=== PATIENT | female | born 1950 | race Caucasian/White ===

== ENCOUNTER 2019-07-12 10:21 | Emergency (ER) | payer OTHER ==
[2019-07-12] MEDS ORDERED: FENTANYL CITR 100 MCG/2 ML ONE (11:35)
[2019-07-12] MEDS ORDERED: TETANUS & DIPHTHERIA TOX,ADULT 0.5 ML VIAL ONE (11:35)
--- NOTE | 2019-07-12 12:28 | ER ---
Nurse's Notes [facility] Name: Vilma Richards Age: 69 yrs Sex: Female : 1950 Arrival Date: 07/12/2019 Time: 10:30 Bed 20 Private MD: Diagnosis: Fall (on) (from) other stairs and steps;Unspecified injury of head;2-part nondisplaced fracture of surgical neck of right humerus Presentation: 07/11 10:31 Chief complaint: Patient states: Tripped on the steps and fell 2-3 steps down yank R ca1 arm up and popped. Got up and felt very lightheaded, fell again from standing, fell on back, hit head on the concrete floor then passed out. Denies taking blood thinners. C/O R arm pain. Coronavirus screen: The patient has NOT traveled to [place] in the past 14 days. The patient has NOT had contact with known and/or suspected case of Coronavirus. Ebola Screen: Patient negative for fever greater than or equal to 101.5 degrees Fahrenheit, and additional compatible Ebola Virus Disease symptoms Patient denies exposure to infectious person. Patient denies travel to an Ebola-affected area in the 21 days before illness onset. No symptoms or risks identified at this time. Initial Sepsis Screen: Does the patient meet any 2 criteria? No. Patient's initial sepsis screen is negative. Does the patient have a suspected source of infection? No. Patient's initial sepsis screen is negative. Risk Assessment: Do you want to hurt yourself or someone else? Patient reports no desire to harm self or others. Onset of symptoms was July 12, 2019. 10:31 Method Of Arrival: Ambulatory ca1 10:31 Acuity: MACK 3 ca1 11:30 Trauma event details: Injury occurred in the [facility]. mg2 11:30 Care prior to arrival: None. Mechanism of Injury: Fall from standing position. mg2 Triage Assessment: 11:30 General: Appears in no apparent distress. uncomfortable, Behavior is calm, cooperative. mg2 Trauma Activation: Not Applicable Physician: ED Physician; Name: ; Notified At: ; Arrived At: Physician: General Surgeon; Name: ; Notified At: ; Arrived At: Physician: Radiology; Name: ; Notified At: ; Arrived At: Physician: Respiratory; Name: ; Notified At: ; Arrived At: Physician: Lab; Name: ; Notified At: ; Arrived At: Historical: - Allergies: 10:39 No Known Allergies; ca1 - Home Meds: 10:39 None [Active]; ca1 - PMHx: 10:39 None; ca1 - PSHx: 10:39 None; ca1 - Immunization history:: Adult Immunizations up to date, Last tetanus immunization: not immunized Flu vaccine is up to date. - Social history:: Smoking status: Patient denies any tobacco usage or history of. Screenin:30 Abuse screen: Denies threats or abuse. Denies injuries from another. Nutritional mg2 screening: On. Tuberculosis screening: No symptoms or risk factors identified. 11:30 Fall Risk Fall in past 12 months (25 points). mg2 Primary Survey: 11:30 NO uncontrolled hemorrhage observed. A: The patient is alert. A: The patient is alert. mg2 Airway: patent. Breathing/Chest: Respiratory pattern: regular, Respiratory effort: spontaneous, unlabored. Circulation: Skin color: pink. Disability Alert. Exposure/Environment: All clothing and personal items were removed. Forensic evidence collection is not deemed to be indicated at this time. Items placed in patient belonging bag. There is no evidence of uncontrolled external bleeding. No obvious injuries are noted at this time. A warming method has been applied: A warm blanket has been provided to the patient. 12:30 Reassessment Airway Airway Patent Breathing/Chest Respiratory pattern Regular mg2 Respiratory effort Spontaneous Unlabored Breath sounds Clear Circulation Color [place] Disability Alert. Secondary Survey: 11:30 HEENT: No deficits noted. Gastrointestinal: No deficits noted. : No deficits noted. mg2 Musculoskeletal: Circulation, motion, and sensation intact. Capillary refill < 3 seconds, Swelling present in parietal area (scalp) Reports pain in anterior aspect of right shoulder. Assessment: 11:30 General: Appears in no apparent distress. uncomfortable. Pain: Complains of pain in mg2 anterior aspect of right shoulder Pain currently is 10 out of 10 on a pain scale. Quality of pain is described as aching. Neuro: Level of Consciousness is awake, alert, obeys commands, Oriented to person, place, time, situation. Cardiovascular: Capillary refill < 3 seconds Patient's skin is warm and dry. Respiratory: Airway is patent Respiratory effort is even, unlabored, Respiratory pattern is regular, symmetrical. GI: No signs and/or symptoms were reported involving the gastrointestinal system. : No signs and/or symptoms were reported regarding the genitourinary system. EENT: No signs and/or symptoms were reported regarding the EENT system. Derm: Skin abrasion in the scalp. Musculoskeletal: Circulation, motion, and sensation intact. Capillary refill < 3 seconds, Reports pain in anterior aspect of right shoulder. 11:37 Reassessment: pt sent to ct scan via stretcher. mg2 Vital Signs: 10:31 BP 135 / 98; Pulse 74; Resp 18 S; Temp 97.1; Pulse Ox 100% on R/A; Weight 58.97 kg (R); ca1 Height 5 ft. 6 in. (167.64 cm) (R); 11:30 BP 135 / 78; Pulse 80; Resp 18; Pulse Ox 100% on R/A; mg2 12:30 BP 125 / 78; Pulse 80; Resp 18; Temp 98; Pulse Ox 100% on R/A; mg2 10:31 Body Mass Index 20.98 (58.97 kg, 167.64 cm) ca1 Kaia Coma Score: 11:30 Eye Response: spontaneous(4). Verbal Response: oriented(5). Motor Response: obeys mg2 commands(6). Total: 15. Trauma Score (Adult): 11:30 Eye Response: spontaneous(1); Verbal Response: oriented(1); Motor Response: obeys mg2 commands(2); Systolic BP: > 89 mm Hg(4); Respiratory Rate: 10 to 29 per min(4); Kaia Score: 15; Trauma Score: 12 12:30 Eye Response: spontaneous(1); Verbal Response: oriented(1); Motor Response: obeys mg2 commands(2); Systolic BP: > 89 mm Hg(4); Respiratory Rate: 10 to 29 per min(4); [place] Score: 15; Trauma Score: 12 ED Course: 10:30 Patient arrived in ED. fj1 10:38 Triage completed. ca1 10:39 Arm band placed on right wrist. ca1 10:44 Sling applied on R arm. ca1 11:15 Carmen Barbour FNP-C is [facility]. snw 11:15 Nadiya Lantigua MD is Attending Physician. snw 11:16 Yogesh Rodriguez RN is Primary Nurse. mg2 11:30 Patient has correct armband on for positive identification. mg2 11:30 Patient did not have IV access during this emergency room visit. mg2 11:30 Thermoregulation: warm blanket given to patient. mg2 12:09 Patient moved back from radiology. jb2 12:24 Flaco Issa MD is Referral Physician. snw 12:26 CT Head C Spine In Process Unspecified. EDMS 12:50 No provider procedures requiring assistance completed. mg2 12:50 Shoulder immobilizer applied on right shoulder. Patient maintains SpO2 saturation mg2 greater than 95% on room air. 12:50 No provider procedures requiring assistance completed. mg2 Administered Medications: 11:36 Drug: Tetanus-Diphtheria Toxoid Adult 0.5 ml {Sample Wrapper: [email or web address]. Exp: mg2 05/26/2021. Lot #: [id number]. } Route: IM; Site: left deltoid; 12:18 Follow up: Response: No adverse reaction mg2 11:36 Drug: fentaNYL (PF) 50 mcg Route: IM; Site: right gluteus; mg2 12:39 Follow up: Response: No adverse reaction mg2 12:38 Drug: Valium 5 mg Route: PO; mg2 12:38 Follow up: Response: No adverse reaction mg2 12:38 Drug: [place] (7.5 mg-325 mg) 1 tabs Route: PO; mg2 12:38 Follow up: Response: No adverse reaction; Medication administered at discharge. mg2 Intake: 11:30 PO: 0ml; Total: 0ml. mg2 Outcome: 12:26 Discharge ordered by . snw 12:50 Discharged to home via wheelchair, with family. mg2 12:50 Patient's length of stay was not longer than 2 hours. 12:50 Condition: stable mg2 12:50 Discharge instructions given to patient, family, Instructed on discharge instructions, mg2 follow up and referral plans. medication usage, Demonstrated understanding of instructions, follow-up care, medications, Prescriptions given X 2. 12:52 Patient left the ED. mg2 Signatures: Dispatcher [employer] EDMS Carmen Barbour FNP-C FNP-Maycol Hairston jb2 Yogesh Rodriguez, BERKLEY RN mg2 Brooke Mccartney RN RN ca1 Harjeet Rodriguez fj1 Corrections: (The following items were deleted from the chart) 10:44 10:31 Chief complaint: Patient states: Tripped on the steps and fell 2-3 steps down ca1 yank R arm up and popped. Got up and felt very lightheaded, fell again from standing, fell on back, hit head on the concrete floor then passed out. Denies taking blood thinners. ca1
--- NOTE | 2019-07-12 12:29 | RAD REPORT ---
EXAM DESCRIPTION: RAD - Shoulder Right 2 View - 07/12/2019 12:10 pm CLINICAL HISTORY: Right shoulder pain FINDINGS: Mildly displaced humeral neck fracture. No dislocation
--- NOTE | 2019-07-12 12:29 | RAD REPORT ---
EXAM DESCRIPTION: RAD - Humerus Right - 07/12/2019 12:10 pm CLINICAL HISTORY: Right arm pain FINDINGS: Mildly displaced humeral neck fracture. No dislocation. Osteoporosis
--- NOTE | 2019-07-12 12:29 | EDPHYS ---
Physician Documentation [facility] Name: Vilma Richards Age: 69 yrs Sex: Female : 1950 Arrival Date: 07/12/2019 Time: 10:30 Bed 20 Private MD: ED Physician Nadiya Lantigua HPI: 07/11 11:38 This 69 yrs old Female presents to ER via Ambulatory with complaints of Fall snw Injury. 11:38 Details of fall: The patient fell from an upright position, while walking. Onset: The snw symptoms/episode began/occurred suddenly, this morning. Associated injuries: The patient sustained injury to the head, abrasion, hematoma, posterior aspect of right shoulder and anterior aspect of right shoulder, contusion, decreased range of motion, painful injury. Severity of symptoms: At their worst the symptoms were moderate, severe. The patient has not experienced similar symptoms in the past. The patient has not recently seen a physician. pt was walking down stairs, tripped, felt something pop in right arm/shoulder, became lightheaded, dizzy, diaphoretic. Sat for a few minutes. Upon descending the stairs again, pt got to landing, had a syncopal episode and struck occiput on concrete. No vomiting. . Historical: - Allergies: 10:39 No Known Allergies; ca1 - Home Meds: 10:39 None [Active]; ca1 - PMHx: 10:39 None; ca1 - PSHx: 10:39 None; ca1 - Immunization history:: Adult Immunizations up to date, Last tetanus immunization: not immunized Flu vaccine is up to date. - Social history:: Smoking status: Patient denies any tobacco usage or history of. ROS: 11:37 Constitutional: Negative for fever, chills, and weight loss, Eyes: Negative for injury, snw pain, redness, and discharge, ENT: Negative for injury, pain, and discharge, Neck: Negative for injury, pain, and swelling, Cardiovascular: Negative for chest pain, palpitations, and edema, Respiratory: Negative for shortness of breath, cough, wheezing, and pleuritic chest pain, Abdomen/GI: Negative for abdominal pain, nausea, vomiting, diarrhea, and constipation, Back: Negative for injury and pain, : Negative for injury, bleeding, discharge, and swelling, Skin: Negative for injury, rash, and discoloration. 11:37 MS/extremity: Positive for injury or acute deformity, decreased range of motion, pain, of the anterior aspect of right shoulder, right bicep and posterior aspect of right shoulder. 11:37 Neuro: Positive for loss of consciousness. Exam: 11:35 Constitutional: This is a well developed, well nourished patient who is awake, alert, snw and in no acute distress. Head/Face: Normocephalic, traumatic. occipital hematoma Eyes: Pupils equal round and reactive to light, extra-ocular motions intact. Lids and lashes normal. Conjunctiva and sclera are non-icteric and not injected. Cornea within normal limits. Periorbital areas with no swelling, redness, or edema. ENT: Nares patent. No nasal discharge, no septal abnormalities noted. Tympanic membranes are normal and external auditory canals are clear. Oropharynx with no redness, swelling, or masses, exudates, or evidence of obstruction, uvula midline. Mucous membranes moist. Neck: Trachea midline, no thyromegaly or masses palpated, and no cervical lymphadenopathy. Supple, full range of motion without nuchal rigidity, or vertebral point tenderness. No Meningismus. Chest/axilla: Normal chest wall appearance and motion. Nontender with no deformity. No lesions are appreciated. Cardiovascular: Regular rate and rhythm with a normal S1 and S2. No gallops, murmurs, or rubs. Normal PMI, no JVD. No pulse deficits. Respiratory: Lungs have equal breath sounds bilaterally, clear to auscultation and percussion. No rales, rhonchi or wheezes noted. No increased work of breathing, no retractions or nasal flaring. Abdomen/GI: Soft, non-tender, with normal bowel sounds. No distension or tympany. No guarding or rebound. No evidence of tenderness throughout. Back: No spinal tenderness. No costovertebral tenderness. Full range of motion. Skin: Warm, dry with normal turgor. Normal color with no rashes, no lesions, and no evidence of cellulitis. Neuro: Awake and alert, GCS 15, oriented to person, place, time, and situation. Cranial nerves II-XII grossly intact. Motor strength 5/5 in all extremities. Sensory grossly intact. Cerebellar exam normal. Normal gait. Psych: Awake, alert, with orientation to person, place and time. Behavior, mood, and affect are within normal limits. 11:35 Musculoskeletal/extremity: Extremities: grossly normal except: noted in the anterior aspect of right shoulder and right bicep: decreased ROM, pain, ROM: limited active range of motion due to pain, Circulation is intact in all extremities. Sensation intact. Vital Signs: 10:31 BP 135 / 98; Pulse 74; Resp 18 S; Temp 97.1; Pulse Ox 100% on R/A; Weight 58.97 kg (R); ca1 Height 5 ft. 6 in. (167.64 cm) (R); 11:30 BP 135 / 78; Pulse 80; Resp 18; Pulse Ox 100% on R/A; mg2 12:30 BP 125 / 78; Pulse 80; Resp 18; Temp 98; Pulse Ox 100% on R/A; mg2 10:31 Body Mass Index 20.98 (58.97 kg, 167.64 cm) ca1 Kaia Coma Score: 11:30 Eye Response: spontaneous(4). Verbal Response: oriented(5). Motor Response: obeys mg2 commands(6). Total: 15. Trauma Score (Adult): 11:30 Eye Response: spontaneous(1); Verbal Response: oriented(1); Motor Response: obeys mg2 commands(2); Systolic BP: > 89 mm Hg(4); Respiratory Rate: 10 to 29 per min(4); [place] Score: 15; Trauma Score: 12 12:30 Eye Response: spontaneous(1); Verbal Response: oriented(1); Motor Response: obeys mg2 commands(2); Systolic BP: > 89 mm Hg(4); Respiratory Rate: 10 to 29 per min(4); [place] Score: 15; Trauma Score: 12 MDM: 11:16 Patient medically screened. snw 12:28 Data reviewed: vital signs, nurses notes. Data interpreted: Pulse oximetry: on room air snw is 100 %. Interpretation: normal. Counseling: I had a detailed discussion with the patient and/or guardian regarding: the historical points, exam findings, and any diagnostic results supporting the discharge/admit diagnosis, the presence of at least one elevated blood pressure reading (>120/80) during this emergency department visit, radiology results, the need for outpatient follow up, to return to the emergency department if symptoms worsen or persist or if there are any questions or concerns that arise at home. Special discussion: I have referred the patient to see his PCP for further evaluation of high blood pressure. Based on the history and exam findings, there is no indication for further emergent testing or inpatient evaluation. I discussed with the patient/guardian the need to see the orthopedic surgeon for further evaluation of the symptoms. I discussed with the patient/guardian the need to see the primary care provider for further evaluation of the symptoms. 07/11 11:22 Order name: Humerus Right XRAY snw 07/11 11:23 Order name: Shoulder Right (2 View) XRAY snw 07/11 11:23 Order name: CT Head C Spine snw 07/11 12:23 Order name: Shoulder Immobilizer; Complete Time: 12:24 snw Administered Medications: 11:36 Drug: Tetanus-Diphtheria Toxoid Adult 0.5 ml {Casting Supervisor: [employer]. Exp: mg2 05/26/2021. Lot #: [id number]. } Route: IM; Site: left deltoid; 12:18 Follow up: Response: No adverse reaction mg2 11:36 Drug: fentaNYL (PF) 50 mcg Route: IM; Site: right gluteus; mg2 12:39 Follow up: Response: No adverse reaction mg2 12:38 Drug: Valium 5 mg Route: PO; mg2 12:38 Follow up: Response: No adverse reaction mg2 12:38 Drug: [place] (7.5 mg-325 mg) 1 tabs Route: PO; mg2 12:38 Follow up: Response: No adverse reaction; Medication administered at discharge. mg2 Disposition: 07/12/19 12:26 Discharged to Home. Impression: Fall (on) (from) other stairs and steps, Unspecified injury of head, 2-part nondisplaced fracture of surgical neck of right humerus. - Condition is Stable. - Discharge Instructions: Head Injury, Adult, Fall Prevention in the Home, Humerus Fracture Treated With Immobilization, Humerus Fracture Treated With ORIF, RICE for Routine Care of Injuries, How to Use a Shoulder Immobilizer. - Prescriptions for Mobic 7.5 mg Oral Tablet - take 1 tablet by ORAL route once daily take with food; 20 tablet. orphenadrine citrate 100 mg Oral Tablet Sustained Release - take 1 tablet by ORAL route 2 times per day As needed; 20 tablet. promethazine 25 mg Oral Tablet - take 1 tablet by ORAL route every 6 hours As needed; 20 tablet. - Medication Reconciliation Form, Thank You Letter, Antibiotic Education, Prescription Opioid Use form. - Follow up: Emergency Department; When: As needed; Reason: Worsening of condition. Follow up: Private Physician; When: 1 - 2 days; Reason: Recheck today's complaints, Continuance of care, Re-evaluation by your physician. Follow up: Flaco Issa MD; When: 2 - 3 days; Reason: Recheck today's complaints, Continuance of care. Addendum: 07/18/2019 01:28 Co-signature as Attending Physician, Nadiya Lantigua MD. m a2 Signatures: Dispatcher [employer] EDMS Carmen Barbour, TIRE MAKER-C TIRE MAKER-Csnw Nadiya Lantigua MD MD ma2 Yogesh Rodrigeuz, RN RN mg2 Brooke Mccartney RN RN ca1 Corrections: (The following items were deleted from the chart) 07/11 12:52 12:26 07/12/2019 12:26 Discharged to Home. Impression: Fall (on) (from) other stairs mg2 and steps; Unspecified injury of head; 2-part nondisplaced fracture of surgical neck of right humerus. Condition is Stable. Forms are Medication Reconciliation Form, Thank You Letter, Antibiotic Education, Prescription Opioid Use. Follow up: Emergency Department; When: As needed; Reason: Worsening of condition. Follow up: Private Physician; When: 1 - 2 days; Reason: Recheck today's complaints, Continuance of care, Re-evaluation by your physician. Follow up: Dr. Flaco Issa; When: 2 - 3 days; Reason: Recheck today's complaints, Continuance of care. snw
[2019-07-12] MEDS ORDERED: DIAZEPAM 5 MG TABLET ONE (12:31)
[2019-07-12] MEDS ORDERED: HYDROCODONE/APAP 7.5/325 MG TAB ONE (12:31)
--- NOTE | 2019-07-12 12:40 | RAD REPORT ---
EXAM DESCRIPTION: CT - Head C Spine Mpr Wo Con - 07/12/2019 11:42 am CLINICAL HISTORY: Head and neck injury status post fall. Head and neck pain COMPARISON: None. TECHNIQUE: Computed axial tomography of the head and cervical spine was obtained. Sagittal and coronal reconstruction was performed. All CT scans are performed using dose optimization technique as appropriate and may include automated exposure control or mA/KV adjustment according to patient size. FINDINGS: An intracranial bleed is not seen. The ventricles are normal in caliber. An extra-axial fl uid collection is not noted.Fluid within the visualized sinuses and mastoids is not seen A cervical fracture is not visualized. No dislocation is noted. There is widening of left vertebral foramen of C4 IMPRESSION: No acute intracranial abnormality is seen. A cervical fracture is not visualized. Widening of the left vertebral foramen of C4 can be secondary to dural ectasia or mass. A nonemergent MRI cervical spine with contrast recommended. Examination was discussed with the referring provider after its completion
[2019-07-12 13:48] VITALS: BP 135/98; TEMP 97.1; O2SAT 100
== END 2019-07-12 12:52 | disposition home or self-care (01) ==
LOC: ER 10:21
DX: S42.224A 2-part nondisplaced fracture of surgical neck of right humerus, initial encounter for closed fracture (principal); W10.8XXA Fall (on) (from) other stairs and steps, initial encounter; Y93.9 Activity, unspecified; Y92.9 Unspecified place or not applicable; Z23 Encounter for immunization
CPT/HCPCS: 70450; 72125; 73060; 73030; 90471; 90714; 96372; 99284; J3010